=== PATIENT | female | born 1990 | race Caucasian/White ===

== ENCOUNTER 2021-03-27 14:11 | Emergency (ER) | payer OTHER ==
[~2021-03-27 14:11] MED LIST: HYDROCODON-ACE1 EAC7 PO; NOHOMEMEDICATIONS; NORCO5 PO; TIZANIDINE4 MG/1 TA1 PO
[2021-03-27] MEDS ORDERED: SPRINTEC1 EACH PO (18:06)
[2021-03-27] MEDS ORDERED: METRONIDAZOLE500 M4 PO (18:21)
== END 2021-03-27 15:32 | disposition left against medical advice (07) ==
LOC: M.ERS 14:11
DX: R10.9 Unspecified abdominal pain (principal); Z53.21 Procedure and treatment not carried out due to patient leaving prior to being seen by health care provider